=== PATIENT | male | born 1950 | race American Indian/Alaskan Native ===

== ENCOUNTER 2021-08-11 10:20 | Emergency (ER) | payer MEDICARE, OTHER ==
--- NOTE | 2021-08-11 13:06 | Emergency Department Report ---
ED Extremity Problem HPI - General Chief complaint: Extremity Problem,Nontraumatic Stated complaint: LF FOOT SWOLLEN PAIN Time Seen by Provider: 08/11/21 12:09 Source: patient Mode of arrival: Ambulatory Limitations: No Limitations - History of Present Illness Initial comments: Patient presents with left foot pain. He states he was walking in the yard a couple of days ago. He stepped up onto a hill and noticed that he was having sharp pain in the dorsum and lateral aspect of the left foot. His left foot has become swollen despite elevation. There is no fever. He has had no chills. No cough or congestion. There is no direct trauma that he can recall. He does not remember stepping on anything. He was not stung or bitten by anything. Pain is gotten to the point that is progressively worsened. He could not do physical therapy today because he could not bear weight on his left foot. He has no ankle pain. Is never had symptoms like this before. Patient has no other joint involvement. Pain is constant and aching. It does not radiate or migrate. - Related Data Home Medications Medication Instructions Recorded Confirmed Last Taken No Known Home Medications [No 08/11/21 08/11/21 Unknown Reported Home Medications] Allergies Allergy/AdvReac Type Severity Reaction Status Date / Time No Known Allergies Allergy Verified 08/11/21 11:43 ED Review of Systems ROS: Stated complaint: LF FOOT SWOLLEN PAIN Other details as noted in HPI Comment: All other systems reviewed and negative Constitutional: denies: fever Eyes: denies: vision change ENT: denies: throat pain Respiratory: denies: cough Cardiovascular: denies: chest pain Endocrine: denies: unexplained weight loss Gastrointestinal: denies: abdominal pain Genitourinary: denies: dysuria Musculoskeletal: denies: back pain Skin: denies: rash Neurological: denies: headache Hematological/Lymphatic: denies: easy bruising ED Past Medical Hx - Past Medical History Previous Medical History?: No - Family History Family history: no significant - Social History Smoking Status: Never Smoker Substance Use Type: None - Medications Home Medications: Home Medications Medication Instructions Recorded Confirmed Last Taken Type No Known Home Medications [No 08/11/21 08/11/21 Unknown History Reported Home Medications] ED Physical Exam - General Limitations: No Limitations, Other (Pulse ox noted and normal) General appearance: alert, in no apparent distress - Head Head exam: Present: atraumatic, normocephalic - Eye Eye exam: Present: normal appearance, EOMI - ENT ENT exam: Present: normal external ear exam - Neck Neck exam: Present: normal inspection - Respiratory Respiratory exam: Absent: respiratory distress - Cardiovascular Cardiovascular Exam: Absent: JVD - Extremities Exam Extremities exam: Present: normal capillary refill, other (Left foot is tender and edematous over the mid dorsal aspect and left lateral aspect. Pulses are equal and symmetric recuperative is brisk. Sensation is intact. Gait was not assessed as the patient could not bear weight. Ankle is nontender.) - Back Exam Back exam: Absent: CVA tenderness (R), CVA tenderness (L) - Neurological Exam Neurological exam: Present: alert, oriented X3, CN II-XII intact. Absent: motor sensory deficit - Psychiatric Psychiatric exam: Present: normal affect, normal mood - Skin Skin exam: Present: warm, dry ED Course Vital Signs 08/11/21 08/11/21 08/11/21 10:30 11:40 11:42 Temperature 97.9 F 98.0 F Pulse Rate 93 H 74 Respiratory 18 14 Rate Blood Pressure 125/74 Blood Pressure 125/82 [Right] O2 Sat by Pulse 97 100 98 Oximetry 08/11/21 14:33 Temperature 98.0 F Pulse Rate 81 Respiratory 20 Rate Blood Pressure Blood Pressure 128/73 [Right] O2 Sat by Pulse 100 Oximetry - Reevaluation(s) Reevaluation #1: 08/11/21 13:04 Patient is now in the room. X-rays were ordered. Reevaluation #2: 08/12/21 18:51 X-rays were reviewed and the patient was discharged ED Medical Decision Making - Radiology Data Radiology results: report reviewed - Medical Decision Making Patient presents with foot pain while walking. He was found to have 1/5 metatarsal fracture. There did not appear to be any lytic lesion suggestive of a pathologic fracture however. Patient was placed in a fracture shoe. He was given orthopedic referral. This does not need surgery. He can follow-up with orthopedics in 7 days. He had no other trauma and no other injury noted. Critical Care Time: No Critical care attestation.: If time is entered above; I have spent that time in minutes in the direct care of this critically ill patient, excluding procedure time. ED Disposition Clinical Impression: Left foot pain Fracture of fifth metatarsal bone Qualifiers: Encounter type: initial encounter Fracture type: closed Fracture alignment: nondisplaced Laterality: left Qualified Code(s): S92.355A - Nondisplaced fracture of fifth metatarsal bone, left foot, initial encounter for closed fracture Disposition: 01 HOME / SELF CARE / HOMELESS Is pt being admited?: No Condition: Stable Instructions: How to Use Cold Therapy, Metatarsal Fracture Additional Instructions: Ice and elevate. Return for problems. Follow-up with your family doctor for recheck. Return for any problems or concerns. Referrals: COLE MORAN MD [Other] - 7-10 days
--- NOTE | 2021-08-11 14:29 | XRay Report ---
XR foot 3+V LT INDICATION / CLINICAL INFORMATION: pain/swelling. COMPARISON: None available. FINDINGS: Suspect nondisplaced fracture involving the base of the left fifth metatarsal.. Normal alignment. J oint spaces are preserved. No destructive osseous lesion or suspicious periosteal reaction. Impression: 1.Suspect nondisplaced fracture involving the base of the left fifth metatarsal. Correlate for point tenderness. Signer Name: Jose De Jesus Villaseñor MD Signed: 08/11/2021 2:24 PM Workstation Name: [id number]
[2021-08-11 14:34] VITALS: BP 128/73
== END 2021-08-11 15:10 | disposition home or self-care (01) ==
LOC: ED 10:20
DX: S92.352A Displaced fracture of fifth metatarsal bone, left foot, initial encounter for closed fracture (principal); X58.XXXA Exposure to other specified factors, initial encounter; Y93.89 Activity, other specified; Y92.89 Other specified places as the place of occurrence of the external cause; Y99.8 Other external cause status
CPT/HCPCS: 99282